=== PATIENT | male | born 1950 | race Caucasian/White ===

== ENCOUNTER → 2016-08-11 | Outpatient (CLI) | payer OTHER ==
[~2016-08-11] MED LIST: ACETAMINOPHEN PO; ALDACTONE PO; ASPIRIN81 MG PO; BUMEX2 MG PO; CARVEDILOL6.25 MG PO; CORDARONE200 M1 PO; COREG PO; COREG3.125 MG PO; COUMADIN PO; DIGOX0.125 MG PO; FUROSEMIDE40 MG PO; JANTOVEN5 MG PO; K-DUR20 ME1 PO; LANOXIN PO; LASIX PO; LISINOPRIL PO; LISINOPRIL5 MG PO; PACERONE PO; POTASSIUM CHLO20 ME1 PO; PRADAXA150 MG PO; SORINE80 MG PO
[2016-08-11 12:24] LABS: BILIRUBIN,TOTAL 0.6 mg/dL (0.2-2.0); BUN/CREATININE RATIO 12.85; CALCIUM SERUM 9.2 mg/dL (8.4-10.2); CREATININE SERUM 1.4 mg/dL (0.6-1.4); GLOM FILT RATE Estimated 52.7 mL/min (>60); POTASSIUM 4.4 mmol/L (3.5-5.1); PROTEIN TOTAL SERUM 7.9 g/dL (6.0-8.3); URIC ACID 6.8 mg/dL (2.6-7.2)
== END | disposition home or self-care (01) ==
LOC: CLAB 10:56
PROVIDERS: Internal Medicine Cardiovascular Disease
DX: M10.9 Gout, unspecified (principal)
CPT/HCPCS: 36415; 80053; 84550